=== PATIENT | male | born 1995 | race Caucasian/White ===

== ENCOUNTER 2017-09-08 16:35 | Emergency (ER) | payer OTHER ==
[2017-09-08] MEDS ORDERED: Ondansetron ODT TAB* 4 MG PO ONE (17:20)
[2017-09-08 17:43] LABS: Urine Appearance Cloudy; Urine Blood Negative (Negative); Urine Color Yellow; Urine Ketones 1+ (Negative); Urine Protein Negative (Negative); Urine Specific Gravity 1.019 (1.010-1.030); Urine Urobilinogen Negative (Negative)
[2017-09-08 18:02] LABS: ABS Basophils 0 10^3/ul (0-0.2); ABS Eosinophils 0.1 10^3/ul (0-0.6); ABS Lymphocytes 1.2 10^3/ul (1.0-4.8); ABS Monocytes 0.6 10^3/ul (0-0.8); ABS Neutrophils 6.8 10^3/ul (1.5-7.7); ABS Nucleated RBC 0 10^3/ul; Eosinophil % 1.5 % (0-6); Hematocrit 44 % (42-52); Hemoglobin 15.2 g/dl (14.0-18.0); Lymphocyte % 13.3 % (25-47); Mean Corpuscular HGB Conc 35 g/dl (31-36); Mean Corpuscular Hemoglobin 29 pg (27-31); Mean Corpuscular Volume 84 fL (80-94); Mean Platelet Volume 8 um3 (7.4-10.4); Nucleated Red Blood Cells % 0.1; Platelet Count 247 10^3/ul (150-450); Red Blood Count 5.19 10^6/ul (4.0-5.4); Red Cell Distribution Width 12 % (10.5-15); White Blood Count 8.7 10^3/ul (3.5-10.8)
[2017-09-08 18:18] LABS: EGFR Non-African American 148.3 (>60)
[2017-09-08] MEDS ORDERED: Ondansetron ODT TAB* 4 MG SL PRN (19:12)
[2017-09-08] MEDS ORDERED: Ondansetron ODT TAB* 4 MG ONE (19:20)
[2017-09-08] MEDS ORDERED: O ndansetron ODT 4MG 2TAB PRPK 4 MG PAK PO ONE (19:25)
[2017-09-08 19:36] VITALS: BP 126/69
--- NOTE | 2017-09-09 07:59 | ED ---
Nadine Morgan Thomas, scribed for Quentin Hui MD on 09/08/17 at 1723 . Complex/Multi-Sys Presentation - HPI Summary HPI Summary: The patient presents with nausea after accidentally inhaling hydrogen sulfide fumes today at about 11:00. The bottle of hydrogen sulfide was open for about a minute. He still has nausea in the emergency department. He vomited today at 15: 00. He denies any pain or shortness of breath. - History Of Current Complaint Chief Complaint: EDGeneral Time Seen by Provider: 09/08/17 17:13 Hx Obtained From: Patient Onset/Duration: Lasting Hours - onset today at 11:00, Still Present Timing: Constant Severity Currently: Mild Severity Initially: Mild Associated Signs And Symptoms: Positive: Other - Nausea, vomiting; NEGATIVE: pain, SOB - Allergies/Home Medications Allergies/Adverse Reactions: Allergies Allergy/AdvReac Type Severity Reaction Status Date / Time No Known Allergies Allergy Verified 09/08/17 16:46 PMH/Surg Hx/FS Hx/Imm Hx Cardiovascular History: Denies: Hx Myocardial Infarction Respiratory History: Denies: Hx Chronic Obstructive Pulmonary Disease (COPD) - Surgical History Surgery Procedure, Year, and Place: none Infectious Disease History: No Infectious Disease History: Denies: Traveled Outside the [place] in Last 30 Days - Family History Known Family History: Positive: Hypertension, Diabetes - Social History Occupation: Student Alcohol Use: Weekly Hx Substance Use: No Substance Use Type: Reports: None Hx Tobacco Use: No Smoking Status (MU): Never Smoked Tobacco Review of Systems Negative: Fever Negative: Shortness Of Breath Positive: Vomiting, Nausea Negative: Other - pain All Other Systems Reviewed And Are Negative: Yes Physical Exam - Summary Physical Exam Summary: VITAL SIGNS: Reviewed. GENERAL: Patient is a well-developed and nourished male who is lying comfortable in the stretcher. Patient is not in any acute respiratory distress. HEAD AND FACE: No signs of trauma. No ecchymosis, hematomas or skull depressions. No sinus tenderness. EYES: PERRLA, EOMI x 2, No injected conjunctiva, no nystagmus. EARS: Hearing grossly intact. Ear canals and tympanic membranes are within normal limits. MOUTH: Oropharynx within normal limits. NECK: Supple, trachea is midline, no adenopathy, no JVD, no carotid bruit, no c- spine tenderness, neck with full ROM. CHEST: Symmetric, no tenderness at palpation LUNGS: Clear to auscultation bilaterally. No wheezing or crackles. CVS: Regular rate and rhythm, S1 and S2 present, no murmurs or gallops appreciated. ABDOMEN: Soft, non-tender. No signs of distention. No rebound no guarding, and no masses palpated. Bowel sounds are normal. EXTREMITIES: FROM in all major joints, no edema, no cyanosis or clubbing. NEURO: Alert and oriented x 3. No acute neurological deficits. Speech is normal and follows commands. SKIN: Dry and warm Triage Information Reviewed: Yes Vital Signs On Initial Exam: Initial Vitals Temp Pulse Resp BP Pulse Ox 98.8 F 78 17 136/70 100 09/08/17 16:42 09/08/17 16:42 09/08/17 16:42 09/08/17 16:42 09/08/17 16:42 Vital Signs Reviewed: Yes Diagnostics - Vital Signs Vital Signs Temp Pulse Resp BP Pulse Ox 09/08/17 16:42 98.8 F 78 17 136/70 100 - Laboratory Result Diagrams: 09/08/17 17:55 09/08/17 17:55 Lab Statement: Any lab studies that have been ordered have been reviewed, and results considered in the medical decision making process. Complex Multi-Symp Course/Dx Assessment/Plan: The patient presents with nausea after accidentally inhaling hydrogen sulfide fumes today at about 11:00. The bottle of hydrogen sulfide was open for about a minute. He still has nausea in the emergency department. He vomited today at 15:00. He denies any pain or shortness of breath. Test results are without significant abnormality. The exposure was at 11:00. The patient is asymptomatic now after he was given Zofran for nausea. The nurse spoke with poison control, and they only recommend symptomatic treatment. Therefore, the patient will be discharged home to follow up with primary care. He was given a prescription for Zofran. The patient is hemodynamically stable and alert and oriented x3. - Diagnoses Provider Diagnoses: Hydrogen sulfide exposure Discharge - Discharge Plan Condition: Stable Disposition: HOME Prescriptions: Ondansetron TAB* [Zofran 4 MG Tab*] 4 mg PO Q6H PRN #10 tab PRN Reason: Nausea Patient Education Materials: Acute Nausea and Vomiting (ED) Referrals: [facility] - Gino DOMINGUEZ [Primary Care Provider] - 3 Days Additional Instructions: Follow up with [facility] in three days. Return to the emergency department for any new or worsening symptoms. The documentation as recorded by the Nadine allen Thomas accurately reflects the service I personally performed and the decisions made by , Quentin Hui MD.
== END 2017-09-08 19:33 | disposition home or self-care (01) ==
LOC: ED 16:35
DX: T59.6X1A Toxic effect of hydrogen sulfide, accidental (unintentional), initial encounter (principal); R11.2 Nausea with vomiting, unspecified; Y92.9 Unspecified place or not applicable
CPT/HCPCS: 36415; 80053; 81003; 85025; 86140; 99282; A9270-GY

== ENCOUNTER 2018-02-25 22:20 | Emergency (ER) | payer OTHER ==
--- NOTE | 2018-02-25 22:41 | ED ---
Allergic Reaction/Systemic - HPI Summary HPI Summary: 22 y/o male presents to the ED c/o immediate onset mild throat and chest tightness, still present starting around 30 minutes [employer]. Pt is allergic to peanuts and ate pecans unknowingly. Not aggravated or alleviated by anything. Pt took 2 Zyrtec to treat sx. This is scribe Ed Patricia documenting for attending Dennis Murrell MD. - History of Current Complaint Chief Complaint: EDAllergicReaction Time Seen by Provider: 02/25/18 22:40 Hx Obtained From: Patient Onset/Duration: Sudden Onset, Still Present Timing: Constant Pain Intensity: 0 Location: Discrete @ - throat and chest tightness Aggravating Factor(s): Nothing Alleviating Factor(s): Nothing Associated Signs And Symptoms: Positive: Throat Tightening, Other: - chest tightness - Allergies/Home Medications Allergies/Adverse Reactions: Allergies Allergy/AdvReac Type Severity Reaction Status Date / Time Tree Nuts Allergy Intermediate Airway Verified 02/25/18 22:25 Obstruction PMH/Surg Hx/FS Hx/Imm Hx Previously Healthy: No Cardiovascular History: Denies: Hx Myocardial Infarction Respiratory History: Denies: Hx Chronic Obstructive Pulmonary Disease (COPD) - Surgical History Surgery Procedure, Year, and Place: none Infectious Disease History: No Infectious Disease History: Denies: Traveled Outside the [place] in Last 30 Days - Family History Known Family History: Positive: Hypertension, Diabetes - Social History Alcohol Use: Weekly Hx Substance Use: No Substance Use Type: Reports: None Hx Tobacco Use: No Smoking Status (MU): Never Smoked Tobacco Review of Systems Constitutional: Negative Eyes: Negative ENT: Other - throat tightness Cardiovascular: Negative Positive: Other - chest tightness Gastrointestinal: Negative Genitourinary: Negative Musculoskeletal: Negative Skin: Negative Neurological: Negative Psychological: Normal All Other Systems Reviewed And Are Negative: Yes Physical Exam - Summary Physical Exam Summary: Appearance: Well appearing, no pain distress Skin: warm, dry, reflects adequate perfusion Head/face: normal Eyes: EOMI, CECELIA ENT: normal Neck: supple, non-tender Respiratory: CTA, breath sounds present Cardiovascular: RRR, pulses symmetrical Abdomen: non-tender, soft Bowel: present Musculoskeletal: normal, strength/ROM intact Neuro: normal, sensory motor intact, A&Ox3 Triage Information Reviewed: Yes Vital Signs On Initial Exam: Initial Vitals Temp Pulse Resp BP Pulse Ox 98.3 F 55 16 123/76 97 02/25/18 22:22 02/25/18 22:22 02/25/18 22:22 02/25/18 22:22 02/25/18 22:22 Vital Signs Reviewed: Yes Diagnostics - Vital Signs Vital Signs Temp Pulse Resp BP Pulse Ox 02/25/18 22:22 98.3 F 55 16 123/76 97 - Laboratory Lab Statement: Any lab studies that have been ordered have been reviewed, and results considered in the medical decision making process. Allergic Reaction Course/Dx - Course Assessment/Plan: 22 y/o male presents to the ED c/o immediate onset mild throat and chest tightness, still present starting around 30 minutes [employer]. Pt is allergic to peanuts and ate pecans unknowingly. Pt will be d/c home with rx Benadryl. - Diagnoses Provider Diagnoses: Allergic reaction Discharge - Sign-Out/Discharge Documenting (check all that apply): Patient Departure - Discharge Plan Condition: Stable Disposition: HOME Prescriptions: diPHENhydraMINE PO* [Benadryl PO 25 MG TAB*] 25 mg PO TID PRN #15 tab MDD 3 PRN Reason: Allergy Symptoms predniSONE TAB* [Deltasone 20 MG TAB*] 40 mg PO DAILY #3 tab Patient Education Materials: Food Allergy (ED), Peanut Allergy (ED) Referrals: [facility] - Gino DOMINGUEZ [Primary Care Provider] - 4 Days (PLEASE F/U IN 3-5 DAYS) Additional Instructions: RETURN TO THE ED FOR WORSENING SYMPTOMS - Billing Disposition and Condition Condition: STABLE Disposition: Home
[2018-02-25] MEDS ORDERED: predniSONE TAB* 20 MG PO ONE (22:44)
[2018-02-25] MEDS ORDERED: diPHENhydraMINE PO* 25 MG PO ONE (22:44)
[2018-02-26] VITALS: BP 104/63
== END 2018-02-25 23:55 | disposition home or self-care (01) ==
LOC: ED 22:20
DX: T78.1XXA Other adverse food reactions, not elsewhere classified, initial encounter (principal); R07.89 Other chest pain; X58.XXXA Exposure to other specified factors, initial encounter
CPT/HCPCS: 99283; A9270-GY; J7512